=== PATIENT | female | born 1930 | race Asian ===

== ENCOUNTER 2021-01-03 09:58 | Emergency (ER) | payer OTHER ==
[~2021-01-03] VITALS: Ht 157.5 cm; Wt 70.0 kg
[2021-01-03] MEDS ORDERED: AMLO5TAB66 PO (10:20)
[2021-01-03] MEDS ORDERED: LEVO100T13 PO (10:20)
[2021-01-03] MEDS ORDERED: LINA5TAB PO (10:20)
[2021-01-03] MEDS ORDERED: TELM40TA8 PO (10:20)
[2021-01-03] MEDS ORDERED: METO-391 PO (10:20)
[2021-01-03] MEDS ORDERED: ATOR40TA71 PO (10:20)
[2021-01-03] MEDS ORDERED: ASPI-1522 PO (10:20)
[2021-01-03 12:15] VITALS: BP 166/91
== END 2021-01-03 12:29 | disposition home or self-care (01) ==
LOC: EMS 10:11
DX: S40.021A Contusion of right upper arm, initial encounter (principal); E78.00 Pure hypercholesterolemia, unspecified; I10 Essential (primary) hypertension; E03.9 Hypothyroidism, unspecified; V09.9XXA Pedestrian injured in unspecified transport accident, initial encounter; Y93.89 Activity, other specified; Y92.488 Other paved roadways as the place of occurrence of the external cause; Y99.8 Other external cause status
CPT/HCPCS: 76881; 93005; 99284; Z7502